=== PATIENT | female | born 1955 | race Caucasian/White ===

== ENCOUNTER 2021-10-07 07:10 | Inpatient (IN) ==
[2021-10-07] MEDS ORDERED: ONDANSETRON 4 MG/2 ML VIAL IV STA ×2 (07:41→10:01)
[2021-10-07] MEDS ORDERED: SODIUM CHLORIDE 0.9% 1,000 ML IV STA ×2 (07:41→09:12)
[2021-10-07] MEDS ORDERED: HYDROmorphone 2 MG/1 ML VIAL IV STA (07:41)
[2021-10-07 08:20] LABS: Basophils # 0.1 10*3/uL (0.0-0.2); Basophils % 0.8 % (0.0-0.8); Eosinophils % 0.1 % (0.00-10.9); Hematocrit 41.9 VOL% (35.7-47.0); Hemoglobin 13.8 GM/DL (12.0-16.0); Immature Granulocytes % 0.4 %; Immature Granulocytes Absolute 0.03 #; Lymphocytes % 12.6 % (21.3-54.2); Mean Corpuscular HGB Conc 32.9 GM/DL (32-36); Mean Corpuscular Volume 91.9 FL (87-102); Mean Platelet Volume 9.7 FL (9.6-12.0); Neutrophils % 80.1 % (38.7-73.9); Platelet Count 237 T/CUMM (130-400); Red Blood Count 4.56 MC/CUMM (3.8-5.5); Red Cell Distribution Width 12.6 % (9.3-17.3)
[2021-10-07 08:41] LABS: Alanine Aminotransferase 36 U/L (13-56); Albumin 3.3 G/DL (3.4-5.0); Alkaline Phosphatase 139 U/L (45-117); Aspartate Amino Transferase 48 U/L (0-37); Blood Urea Nitrogen 11 MG/DL (7-18); Calcium 8.8 MG/DL (8.5-10.1); Carbon Dioxide 25 MMOL/L (21-32); Estimated Glom Filtration Rate 42 ML/MIN; Glucose 133 MG/DL (74-106); Osmolality,Calculated 264.5 MOS/KG (273-304); Sodium 132 MMOL/L (136-145); Total Protein 7.4 G/DL (6.4-8.2)
[2021-10-07] MEDS ORDERED: PIPERACILLIN/TAZOBACTAM 3,375 MG in SODIUM CHLORIDE 0.9% 100 ML IV STA (10:50)
[2021-10-07] MEDS ORDERED: ACETAMINOPHEN 325 MG TABLET PO PRN (11:01)
[2021-10-07] MEDS ORDERED: GLUCAGON 1 MG VIAL IM PRN (11:01)
[2021-10-07] MEDS ORDERED: MORPHINE 2 MG/1 ML SYRINGE IV PRN (11:01)
[2021-10-07] MEDS ORDERED: HYDROmorphone 2 MG/1 ML VIAL IV PRN (11:07)
[2021-10-07] MEDS ORDERED: DEXTROSE 10% 25 GM/250 ML BAG IV PRN (11:15)
[2021-10-07] MEDS ORDERED: LEVOFLOXACIN INJ 500 MG/100 ML PREMIX IV ONE (12:00)
[2021-10-07] MEDS: DEXAMETHASONE 4 MG/1 ML VIAL IV SCH (12:14)
[2021-10-07] MEDS ORDERED: DEXT 5% NACL 0.9% KCL 20 MEQ 20 MEQ/1,000 ML BAG IV SCH (12:30)
[2021-10-07 12:48] LABS: Barbiturates Screen,Urine Negative (Negative); Benzodiazepines Screen,Urine Negative (Negative); Cannabinoid Screen,Urine Negative (Negative); Opiate Screen,Urine Negative (Negative); Phencyclidine Screen,Urine Negative (Negative)
[2021-10-07] MEDS ORDERED: ONDANSETRON 4 MG/2 ML VIAL IV PRN (12:59)
[2021-10-07] MEDS: BUDESONIDE/FORMOTEROL 160-4.5 INHALER 6 GM INH SCH ×2 (13:00→21:23)
[2021-10-07] MEDS ORDERED: PROMETHAZINE 25 MG/1 ML VIAL IM PRN (13:00)
[2021-10-07] MEDS ORDERED: MAGNESIUM SULF RIDER 2 GM/50 ML PREMIX IV ONE (13:03)
[2021-10-07] MEDS ORDERED: POTASSIUM CHLORIDE 20 MEQ TABLET PO ONE ×2 (13:03→15:04)
[2021-10-07] MEDS ORDERED: ENOXAPARIN 40 MG/0.4 ML SYRINGE SUBCUT SCH (15:00)
[2021-10-07] MEDS ORDERED: POTASSIUM CHLORIDE 20 MEQ TABLET PO SCH (21:00)
[2021-10-07] MEDS ORDERED: ENOXAPARIN 30 MG/0.3 ML SYRINGE SUBCUT SCH (21:00)
[2021-10-07] MEDS: ASCORBIC ACID 500 MG TABLET PO SCH (21:22)
[2021-10-08 04:01] LABS: Basophils % 0.2 % (0.0-0.8); Hematocrit 32.2 VOL% (35.7-47.0); Hemoglobin 10.6 GM/DL (12.0-16.0); Immature Granulocytes % 0.4 %; Immature Granulocytes Absolute 0.02 #; Lymphocytes # 1.2 10*3/uL (1.4-4.0); Lymphocytes % 24.6 % (21.3-54.2); Mean Corpuscular HGB Conc 32.9 GM/DL (32-36); Mean Corpuscular Volume 91.5 FL (87-102); Mean Platelet Volume 10.2 FL (9.6-12.0); Neutrophils % 64.8 % (38.7-73.9); Platelet Count 193 T/CUMM (130-400); Red Blood Count 3.52 MC/CUMM (3.8-5.5); Red Cell Distribution Width 12.8 % (9.3-17.3); White Blood Count 4.9 T/CUMM (4-12)
[2021-10-08 04:52] LABS: Albumin 2.5 G/DL (3.4-5.0); Calcium 7.1 MG/DL (8.5-10.1); Osmolality,Calculated 275.5 MOS/KG (273-304); Potassium 5.4 MMOL/L (3.5-5.1); Total Protein 5.8 G/DL (6.4-8.2)
[2021-10-08 04:59] LABS: Ferritin 56.4 ng/mL (8-252)
[2021-10-08] MEDS: ASPIRIN 325 MG TABLET PO SCH ×2 (05:58→10:00)
[2021-10-08] MEDS ORDERED: ENOXAPARIN 60 MG/0.6 ML SYRINGE SUBCUT SCH (06:00)
[2021-10-08] MEDS ORDERED: PANTOPRAZOLE 40 MG VIAL IV SCH (09:00)
[2021-10-08] MEDS ORDERED: ZINC GLUCONATE 50 MG TABLET PO SCH (09:00)
[2021-10-08] MEDS ORDERED: CHOLECALCIFEROL 1,000 UNIT TABLET PO SCH (09:00)
[2021-10-08] MEDS: DEXAMETHASONE 4 MG/1 ML VIAL IV SCH (10:00)
[2021-10-08] MEDS: ASCORBIC ACID 500 MG TABLET PO SCH (10:00)
[2021-10-08] MEDS ORDERED: LEVOFLOXACIN INJ 250 MG/50 ML PREMIX IV ONE (12:00)
[2021-10-08 12:40] VITALS: BP 117/64
== END 2021-10-08 12:37 | disposition home or self-care (01) | DRG 178 ==
LOC: N.ED 07:10 → N.EDINP 10:59 → SUATTDRO 10:59 → N.EDINP 10-08 13:00
PROVIDERS: ADMIT Hospitalist; ATTEND Internal Medicine